=== PATIENT | female | born 1970 | race Hispanic/Latino ===

== ENCOUNTER 2021-12-15 22:08 | Inpatient (IN) | payer OTHER, MEDICARE ==
[~2021-12-15] VITALS: Ht 157.5 cm; Wt 96.7 kg
[~2021-12-15 22:08] MED LIST: FOLI1TAB61 PO; HYDR200T4 PO; IRON1CAP30 PO; OMEP20CA12 PO; TYL3 PO
[2021-12-15 22:50] LABS: BASOPHILS % (AUTO) 0.5 % (0.0-5.0); EOSINOPHILS % (AUTO) 0.3 % (0.0-8.0); HEMATOCRIT 38.5 % (36-48); LYMPHOCYTES % (AUTO) 5.7 % (21.0-51.0); MEAN CORPUSCULAR HEMOGLOBIN 29.4 pg (27.0-33.0); MEAN CORPUSCULAR HGB CONC 34.3 g/dL (32.0-36.0); MEAN CORPUSCULAR VOLUME 85.7 fL (79-99); MONOCYTES % (AUTO) 10.6 % (3.0-13.0); NEUTROPHILS % (AUTO) 82.1 % (40.0-77.0); PLATELET COUNT (AUTO) 315 K/uL (130-400); RED BLOOD CELL COUNT(AUTO) 4.49 MIL/uL (4.00-5.50); WHITE BLOOD COUNT (AUTO) 15.4 K/uL (4.8-10.8)
[2021-12-15 22:52] LABS: APPEARANCE,URINE CLEAR (CLEAR); BILIRUBIN,URINE SMALL (NEGATIVE); COLOR,URINE YELLOW (YELLOW); GLUCOSE, URINE (UA) NEGATIVE (NEGATIVE); KETONES,URINE NEGATIVE (NEGATIVE); LEUKOCYTE ESTERASE ,URINE LARGE (NEGATIVE); NITRATE,URINE NEGATIVE (NEGATIVE); OCCULT BLOOD,URINE SMALL (NEGATIVE); PROTEIN,URINE 30 mg/dL (NEGATIVE); UROBILINOGEN,URINE >=8.0 mg/dL (0.2-1.0)
[2021-12-15 23:09] LABS: BACTERIA,URINE Few /HPF (None Seen); RBC,URINE 0-1 /HPF (0-1); SQUAMOUS EPITHELIAL CELL,UR Few /HPF (0-2); WBC,URINE 51-100 /HPF (0-1)
[2021-12-15 23:10] LABS: TRANSITIONAL EPI CELLS,URINE Few /HPF (None Seen)
[2021-12-15 23:22] LABS: ALBUMIN 2.6 g/dL (3.5-5.0); BILIRUBIN,TOTAL 1.7 mg/dL (0.2-1.0); POTASSIUM 3.1 mmol/L (3.5-5.1); TOTAL PROTEIN, SERUM 7.6 g/dL (6.0-8.3)
[2021-12-15] MEDS ORDERED: CEFTRIAXONE 1G VIAL IVP ONE (23:30)
[2021-12-15 23:56] LABS: CRP QUANTITATIVE 346.5 mg/L (0.00-9.0)
[2021-12-16] VITALS (7 sets, daily range): BP systolic 89–128; BP diastolic 62–80
[2021-12-16] MEDS ORDERED: ONDANSETRON 4MG INJ IV PRN (01:00)
[2021-12-16] MEDS ORDERED: NITROGLYCERIN 0.4 MG SL TAB SL PRN (01:00)
[2021-12-16] MEDS ORDERED: KCL 20 MEQ ERTAB PO ONE (01:00)
[2021-12-16] MEDS ORDERED: ACETAMINOPHEN 325 MG TAB PO PRN ×2 (01:00)
[2021-12-16] MEDS: 0.9%NACL 1000ML 1,000 ML IV SCH ×2 (01:34→11:29)
[2021-12-16] MEDS ORDERED: LOSA25TA41 PO (02:14)
[2021-12-16] MEDS ORDERED: CHLO25TA3 PO (02:14)
[2021-12-16] MEDS ORDERED: CYCL7.5T27 PO (02:14)
[2021-12-16] MEDS ORDERED: NAPR-1180 PO (02:14)
[2021-12-16] MEDS ORDERED: ACETAMINOPHEN WITH CODEINE 1 TAB TAB PO PRN (02:30)
[2021-12-16 06:19] LABS: INR 1.08 (0.85-1.15); PROTHROMBIN TIME 11.7 SEC (9.6-11.6)
[2021-12-16 06:21] LABS: PARTIAL THROMBOPLASTIN TIME 30.7 SEC (26.3-35.5)
[2021-12-16] MEDS ORDERED: TAMSULOSIN HCL 0.4 MG CAP.ER.24H PO SCH (09:30)
[2021-12-16] MEDS: FAMOTIDINE 20MG TAB PO SCH ×2 (11:22→21:26)
[2021-12-16] MEDS: ENOXAPARIN SODIUM 40 MG/0.4 ML SYRINGE SQ SCH (11:23)
[2021-12-16] MEDS: ACETAMINOPHEN WITH CODEINE 1 TAB TAB PO PRN ×2 (11:51→21:26)
[2021-12-16] MEDS ORDERED: CEFTRIAXONE 1G VIAL IV SCH (21:00)
[2021-12-17] MEDS: 0.9%NACL 1000ML 1,000 ML IV SCH (00:14)
[2021-12-17 03:54] VITALS: BP 96/56
[2021-12-17 05:42] LABS: BASOPHILS % (AUTO) 0.5 % (0.0-5.0); EOSINOPHILS % (AUTO) 0.2 % (0.0-8.0); HEMATOCRIT 34.1 % (36-48); LYMPHOCYTES % (AUTO) 7.8 % (21.0-51.0); MEAN CORPUSCULAR HEMOGLOBIN 28.8 pg (27.0-33.0); MEAN CORPUSCULAR HGB CONC 33.1 g/dL (32.0-36.0); MONOCYTES % (AUTO) 8.2 % (3.0-13.0); NEUTROPHILS % (AUTO) 81.2 % (40.0-77.0); PLATELET COUNT (AUTO) 322 K/uL (130-400); RED BLOOD CELL COUNT(AUTO) 3.92 MIL/uL (4.00-5.50); RED CELL DISTRIBUTION WIDTH 13.3 % (11.0-15.5); WHITE BLOOD COUNT (AUTO) 16.4 K/uL (4.8-10.8)
[2021-12-17 05:53] LABS: ALBUMIN 1.8 g/dL (3.5-5.0); BILIRUBIN,TOTAL 1.8 mg/dL (0.2-1.0); CREATININE 0.8 mg/dL (0.5-1.5); POTASSIUM 3.7 mmol/L (3.5-5.1); TOTAL PROTEIN, SERUM 6.6 g/dL (6.0-8.3)
[2021-12-17] MEDS ORDERED: IOHEXOL 350 MG/ML 100ML INFUS..BTL IV ONE (06:47)
[2021-12-17 08:00] VITALS: BP 140/97
[2021-12-17] MEDS: MEROPENEM 1 GM VIAL IVP SCH ×3 (09:11→23:07)
[2021-12-17] MEDS: ENOXAPARIN SODIUM 40 MG/0.4 ML SYRINGE SQ SCH (09:11)
[2021-12-17] MEDS: FAMOTIDINE 20MG TAB PO SCH ×2 (09:12→21:52)
[2021-12-17 12:00] VITALS: BP 123/86
[2021-12-17 16:00] VITALS: BP 163/96
[2021-12-17 19:00] VITALS: BP 137/85
[2021-12-17] MEDS: TAMSULOSIN HCL 0.4 MG CAP.ER.24H PO SCH (21:52)
[2021-12-17] MEDS ORDERED: 0.9%NACL 1000ML 1,000 ML IV ONE (22:35)
[2021-12-18] VITALS: BP 117/63
[2021-12-18 04:00] VITALS: BP 138/87
[2021-12-18 04:47] LABS: ALBUMIN 1.8 g/dL (3.5-5.0); CREATININE 0.9 mg/dL (0.5-1.5); POTASSIUM 3.1 mmol/L (3.5-5.1); TOTAL PROTEIN, SERUM 6.7 g/dL (6.0-8.3)
[2021-12-18] MEDS: MEROPENEM 1 GM VIAL IVP SCH ×3 (06:43→23:34)
[2021-12-18 08:00] VITALS: BP 142/84
[2021-12-18] MEDS: ENOXAPARIN SODIUM 40 MG/0.4 ML SYRINGE SQ SCH (08:31)
[2021-12-18] MEDS: FAMOTIDINE 20MG TAB PO SCH ×2 (08:31→20:40)
[2021-12-18 12:00] VITALS: BP 132/78
[2021-12-18 16:00] VITALS: BP 140/90
[2021-12-18 20:00] VITALS: BP 163/96
[2021-12-18] MEDS: TAMSULOSIN HCL 0.4 MG CAP.ER.24H PO SCH (20:40)
[2021-12-19] VITALS: BP 136/67
[2021-12-19 04:00] VITALS: BP 128/93
[2021-12-19 05:25] LABS: BASOPHILS % (AUTO) 1.1 % (0.0-5.0); EOSINOPHILS % (AUTO) 2.4 % (0.0-8.0); HEMATOCRIT 32.8 % (36-48); LYMPHOCYTES % (AUTO) 18.8 % (21.0-51.0); MEAN CORPUSCULAR HEMOGLOBIN 29.1 pg (27.0-33.0); MEAN CORPUSCULAR HGB CONC 33.8 g/dL (32.0-36.0); MEAN CORPUSCULAR VOLUME 85.9 fL (79-99); MONOCYTES % (AUTO) 11.4 % (3.0-13.0); NEUTROPHILS % (AUTO) 57.7 % (40.0-77.0); PLATELET COUNT (AUTO) 374 K/uL (130-400); RED BLOOD CELL COUNT(AUTO) 3.82 MIL/uL (4.00-5.50); RED CELL DISTRIBUTION WIDTH 13.6 % (11.0-15.5); WHITE BLOOD COUNT (AUTO) 7.2 K/uL (4.8-10.8)
[2021-12-19 05:41] LABS: ALBUMIN 1.9 g/dL (3.5-5.0); BILIRUBIN,TOTAL 0.6 mg/dL (0.2-1.0); CREATININE 0.9 mg/dL (0.5-1.5); TOTAL PROTEIN, SERUM 6.9 g/dL (6.0-8.3)
[2021-12-19] MEDS: POTASSIUM CHLORIDE 10% ELIXIR 20 MEQ/15 ML UDCUP PO PRN (06:44)
[2021-12-19] MEDS ORDERED: POTASSIUM CHLORIDE 20MEQ/100ML 100 ML IV PRN (07:00)
[2021-12-19] MEDS ORDERED: LIDOCAINE HCL-MPF 1% 2ML VIAL IV PRN (07:00)
[2021-12-19 08:22] VITALS: BP 125/71
[2021-12-19] MEDS ORDERED: TAMS-1 PO (09:11)
[2021-12-19] MEDS ORDERED: CEFU500T67 PO (09:11)
[2021-12-19] MEDS: ENOXAPARIN SODIUM 40 MG/0.4 ML SYRINGE SQ SCH (09:30)
[2021-12-19] MEDS: FAMOTIDINE 20MG TAB PO SCH (09:30)
[2021-12-19] MEDS: KCL 20 MEQ ERTAB PO PRN (10:05)
[2021-12-19] MEDS ORDERED: MEROPENEM 1 GM VIAL IVP SCH (14:00)
== END 2021-12-19 10:30 | disposition home or self-care (01) | DRG 872 ==
LOC: EDH 22:08 → EDHIP 12-16 00:37 → 3BH 12-16 02:08
PROVIDERS: ADMIT Hospitalist; ATTEND Hospitalist
DX: A41.51 Sepsis due to Escherichia coli [E. coli] (principal); N13.6 Pyonephrosis; E87.6 Hypokalemia; R74.01 Elevation of levels of liver transaminase levels; E66.9 Obesity, unspecified; Z68.38 Body mass index [BMI] 38.0-38.9, adult; Z20.822 Contact with and (suspected) exposure to COVID-19; I10 Essential (primary) hypertension; Z90.49 Acquired absence of other specified parts of digestive tract; Z82.49 Family history of ischemic heart disease and other diseases of the circulatory system; Z83.3 Family history of diabetes mellitus
CPT/HCPCS: 36415; 71045; 74176; 74400; 80053; 81001; 82150; 82550; 83605; 83735; 84132; 84484; 85025; 85610; 85651; 85730; 86140; 87040; 87077; 87088; 87186; 87635; 93005; C9803; G0378; J0696; J1650; J2185; J7030; Q9967

== ENCOUNTER → 2024-07-27 | Outpatient (CLI) | payer MEDICARE ==
[~2024-07-27] MED LIST changes: +CEFU500T67 PO; +CHLO25TA3 PO; +CYCL7.5T27 PO; -FOLI1TAB61 PO; -HYDR200T4 PO; -IRON1CAP30 PO; +LOSA25TA41 PO; +NAPR-1180 PO; -OMEP20CA12 PO; +TAMS-1 PO; -TYL3 PO
--- NOTE | 2024-07-27 17:12 | HMCIMG ---
US ARTERIAL BILAT LOW EXT DUPL HISTORY: Bilateral lower extremity pain COMPARISON: None TECHNIQUE: Bilateral lower extremity arterial Doppler ultrasound study was performed. FINDINGS: Normal triphasic arterial waveforms are noted in the common femoral, deep femoral, superficial femoral, popliteal, posterior tibial and dorsalis pedal arteries. On the right, the peak systolic velocity of the common femoral artery is 100 cm/s, the proximal femoral artery is 112 cm/s, the mid femoral artery is 83 cm/s, the distal femoral artery is 94 cm/s, the proximal popliteal artery is 71 cm/s, the distal popliteal artery is 96 cm/s, the anterior tibial artery is 136 cm/s, the posterior tibial artery artery is 120 cm/s,and the dorsalis pedal artery is 129 cm/s. On the left, the peak systolic velocity of the common femoral artery is 144 cm/s, the proximal femoral artery is 130 cm/s, the mid femoral artery is 96 cm/s, the distal femoral artery is 76 cm/s, the proximal popliteal artery is 56 cm/s, the distal popliteal artery is 56 cm/s, the anterior tibial artery is 34 cm/s, the posterior tibial artery artery is 124 cm/s,and the dorsalis pedal artery is 101 cm/s. IMPRESSION: 1. Atherosclerotic disease. 2. Otherwise normal triphasic arterial waveforms noted of the lower extremity artery system.
--- NOTE | 2024-07-27 17:12 | HMCIMG ---
US VENOUS DOPPLER BILATERAL HISTORY: Leg pain COMPARISON: None TECHNIQUE: Bilateral lower extremity venous Doppler ultrasound study was performed. FINDINGS: The common femoral, femoral, popliteal, and posterior tibial veins are visualized. Normal flow with augmentation and compressibilities are demonstrated. The greater saphenous veins are also seen and grossly patent. IMPRESSION: 1. No evidence of deep venous thrombosis is seen.
== END | disposition home or self-care (01) ==
LOC: RAH 14:12
PROVIDERS: ATTEND Nurse Practitioner Family
DX: I70.203 Unspecified atherosclerosis of native arteries of extremities, bilateral legs (principal); M79.604 Pain in right leg; M79.605 Pain in left leg; M79.89 Other specified soft tissue disorders
CPT/HCPCS: 93925; 93970